=== PATIENT | male | born 1955 | race Hispanic/Latino ===

== ENCOUNTER 2022-03-30 17:17 | Emergency (ER) | payer MEDICARE ==
[2022-03-30] MEDS ORDERED: ACETAMINOPHEN 325 MG TAB PO ONE (17:38)
[2022-03-30] MEDS ORDERED: METOCLOPRAMIDE 10 MG/2 ML INJ IV ONE (17:38)
[2022-03-30] MEDS ORDERED: SODIUM CHLORIDE 0.9% 500 ML 500 ML IV ONE (17:38)
--- NOTE | 2022-03-30 17:39 | Emergency Department Report ---
ED General Adult HPI - General Chief complaint: Arrhythmia/Palpitations Stated complaint: HEART RATE/BLOOD PRESSURE/DIZZY Time Seen by Provider: 03/30/22 17:32 Source: patient, RN notes reviewed Mode of arrival: Ambulatory Limitations: No Limitations - History of Present Illness Initial comments: The patient was evaluated in the emergency department for symptoms described in the history of present illness. He/she was evaluated in the context of the [facility] COVID-19 pandemic, which necessitated consideration that the patient might be at risk for infection with the virus that causes COVID-19. Institutional protocols and algorithms that pertain to the evaluation of patients at risk for COVID-19 are in a state of rapid change based on information released by regulatory bodies including the CDC and federal and state organizations. These policies and algorithms were followed during the patient's care in the emergency department. Please note that these policies, procedures and recommendations changed on a rapid basis. This patient is a pleasant and cooperative 66-year-old gentleman who presents to the department today with a complaint of intermittent sensation of heart racing, and possible low blood pressure over the past 2 to 3 weeks. He typically follows with [facility] cardiology, reports that his metoprolol dose has been recently decreased to 25 mg daily, and he currently takes an MAKENNA inhibitor. He endorses a mild headache today while being out in the heat. The headache is not present over the past few weeks. Denies loss of vision, chest pain, abdominal pain, shortness of breath, hematemesis and bright red blood per rectum. He does report recent trip to the [facility]. He denies leg pain and leg swelling He came in today at the insistence of family member. He is not experiencing chest pain at this time -: week(s) Consistency: intermittent Improves with: none Worsens with: none - Related Data Allergies Allergy/AdvReac Type Severity Reaction Status Date / Time morphine AdvReac Vomiting Verified 03/30/22 17:38 ED Review of Systems ROS: Stated complaint: HEART RATE/BLOOD PRESSURE/DIZZY Other details as noted in HPI Constitutional: denies: fever Eyes: denies: eye discharge ENT: denies: epistaxis Respiratory: denies: cough Cardiovascular: palpitations. denies: chest pain Gastrointestinal: denies: abdominal pain, nausea, vomiting Neurological: headache, weakness (Generalized weakness) ED Past Medical Hx - Past Medical History Hx Hypertension: Yes Additional medical history: high cholesterol - Social History Smoking Status: Never Smoker ED Physical Exam - General Limitations: No Limitations General appearance: alert, in no apparent distress - Head Head exam: Present: atraumatic, normocephalic - Eye Eye exam: Present: normal appearance, EOMI. Absent: nystagmus - ENT ENT exam: Present: normal exam, normal orophraynx, mucous membranes moist, normal external ear exam - Neck Neck exam: Present: normal inspection, full ROM. Absent: tenderness, meningismu s - Respiratory Respiratory exam: Present: normal lung sounds bilaterally. Absent: respiratory distress, wheezes, rales, rhonchi, stridor, decreased breath sounds - Cardiovascular Cardiovascular Exam: Present: regular rate, normal rhythm, normal heart sounds. Absent: bradycardia, tachycardia, irregular rhythm, systolic murmur, diastolic murmur, rubs, gallop - GI/Abdominal GI/Abdominal exam: Present: soft. Absent: distended, tenderness, guarding, rebound, rigid, pulsatile mass - Rectal Rectal exam: Present: deferred - Extremities Exam Extremities exam: Present: normal inspection, full ROM, other (2+ pulses noted in the bilateral upper and lower extremities. There is no palpable cord. negative Homans sign. Muscular compartments are soft. The pelvis is stable.). Absent: pedal edema, calf tenderness - Back Exam Back exam: Present: normal inspection, full ROM. Absent: tenderness, CVA tenderness (R), CVA tenderness (L), paraspinal tenderness, vertebral tenderness - Neurological Exam Neurological exam: Present: alert, oriented X3, normal gait, other (There is no facial droop. The tongue is midline. EOMI. 5/5 strength in 4 extremities. Sensation is intact to light touch in 4 extremities). Absent: motor sensory deficit - Psychiatric Psychiatric exam: Present: normal affect, normal mood - Skin Skin exam: Present: warm, dry, intact, normal color. Absent: rash ED Course Vital Signs 03/30/22 03/30/22 03/30/22 17:22 17:31 17:41 Temperature 98.0 F Pulse Rate 83 78 Respiratory 18 20 13 Rate Blood Pressure 114/73 O2 Sat by Pulse 99 98 Oximetry 03/30/22 03/30/22 03/30/22 17:45 18:01 18:15 Temperature Pulse Rate 75 71 73 Respiratory 20 25 H 14 Rate Blood Pressure 110/75 100/70 100/70 O2 Sat by Pulse 97 97 98 Oximetry 03/30/22 03/30/22 03/30/22 18:31 18:45 19:01 Temperature Pulse Rate 69 71 65 Respiratory 27 H 20 21 Rate Blood Pressure 103/69 103/69 94/62 O2 Sat by Pulse 98 97 97 Oximetry - Reevaluation(s) Reevaluation #1: 03/30/22 18:32 Differential diagnosis, include but not limited to: Orthostasis, vagal event, thyroid derangement, electrolyte derangement, heat exhaustion, pulmonary embolism, anemia Medication side effect Assessment and plan 66-year-old gentleman, who is not currently tachycardic, tachypneic or hypoxic, who is low risk by Wells criteria for pulmonary embolism, presenting with a complaint of intermittent sensation of heart racing, lightheadedness, for the past few weeks, who presents to the department today primarily because a family member insisted that he come in. He has a mild headache today which is ass ociate with being out in the heat. He is clinically sober with a GCS of 15, and has a noncontributory physical examination. Check appropriate laboratory studies. EKG nonspecific but not consistent with STEMI without prior for comparison. Reassurance provided to family and patient. They follow with [facility] cardiology. Given that the symptoms have been intermittently present over the past few weeks, normal blood pressure, unremarkable vital signs, unremarkable examination, it is very unlikely that the patient has an emergent medical condition present today 03/30/22 19:24 Patient is reassessed. He is in no acute distress. His laboratory studies are essentially unremarkable and nonactionable. TSH pending. D-dimer negative. Patient endorses complete resolution of symptoms. Remains in a sinus rhythm, saturating 98% on room air. 03/30/22 19:43 TSH within normal limits. Dischargeable without event. Return precautions are reviewed. All questions answered. ED Medical Decision Making - Lab Data Result diagrams: 03/30/22 17:57 03/30/22 17:57 Vital Signs 03/30/22 03/30/22 03/30/22 17:22 17:31 17:41 Temperature 98.0 F Pulse Rate 83 78 Respiratory 18 20 13 Rate Blood Pressure 114/73 O2 Sat by Pulse 99 98 Oximetry 03/30/22 17:45 Temperature Pulse Rate 75 Respiratory 20 Rate Blood Pressure 110/75 O2 Sat by Pulse 97 Oximetry - EKG Data -: EKG Interpreted by Nh EKG shows normal: sinus rhythm Rate: normal - EKG Data When compared to previous EKG there are: previous EKG unavailable 03/30/22 18:32 The EKG is interpreted at 17: 38 Sinus rhythm, rate 74 bpm. Left axis deviation, left anterior fascicular block, MA interval 200 ms, QTC 4 2 3 ms. Abnormal EKG. Not a STEMI. There is no prior for comparison. Critical care attestation.: If time is entered above; I have spent that time in minutes in the direct care of this critically ill patient, excluding procedure time. ED Disposition Clinical Impression: History of palpitations, Lightheadedness, Headache Disposition: HOME / SELF CARE / HOMELESS Is pt being admited?: No Does the pt Need Aspirin: No Condition: Good Instructions: Near-Syncope Additional Instructions: Please drink 4 to 6 cups of water per day. Consume a low-salt diet. Avoid exposure to the extreme heat and extreme cold. Please continue current outpatient medications. 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 Avoid strenuous physical activity, and operation of motor vehicles until cleared to do so by your outpatient physician. Please return to the emergency room right away with new pain, worsened pain, migration of pain, projectile vomiting, change in mental status, confusion, inability tolerate liquid feeds, new, worsened or different symptoms not present on the initial emergency room evaluation Referrals: [facility] [Provider Group] - 3-5 Days Forms: Work/School Release Form(ED)
[2022-03-30] MEDS ORDERED: METOCLOPRAMIDE 10 MG TAB PO ONE (17:48)
[2022-03-30] MEDS ORDERED: SODIUM CHLORIDE 0.9% 1000 ML 1,000 ML ONE (18:05)
[2022-03-30 18:20] LABS: Hematocrit 36.5 % (35.5-45.6); Hemoglobin 12.6 gm/dl (11.8-15.2); Mean Corpuscular HGB Conc 34 % (32-34); Mean Corpuscular Volume 89 fl (84-94); Platelet Count 190 K/mm3 (140-440); Red Blood Count 4.09 M/mm3 (3.65-5.03); Red Cell Distribution Width 14.6 % (13.2-15.2)
[2022-03-30 18:33] LABS: INR 1.05 (0.87-1.13)
[2022-03-30 19:17] LABS: BUN/Creatinine Ratio 10; Blood Urea Nitrogen 12 mg/dL (9-20); Calcium 9.2 mg/dL (8.4-10.2); Hemolysis Index 9
[2022-03-30 20:30] VITALS: BP 98/69
--- NOTE | 2022-04-03 11:55 | Electrocardiograph Report ---
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
== END 2022-03-30 20:34 | disposition home or self-care (01) ==
LOC: ED 17:17
DX: R42 Dizziness and giddiness (principal); R51.9 Headache, unspecified; R00.2 Palpitations; I10 Essential (primary) hypertension; Z91.09 Other allergy status, other than to drugs and biological substances
CPT/HCPCS: 36415; 80048; 82550; 83735; 84443; 85027; 85379; 85610; 93005; 99283; J7030